=== PATIENT | female | born 1995 | race American Indian/Alaskan Native ===

== ENCOUNTER 2019-10-26 09:07 | Emergency (ER) | payer SELFPAY ==
[2019-10-26 09:22] VITALS: BP 125/77
--- NOTE | 2019-10-26 11:17 | Emergency Department Report ---
Chief Complaint: Urogenital-Female Stated Complaint: GROIN PAIN Time Seen by Provider: 10/26/19 11:07 - HPI History of Present Illness: 24-year-old -[place] female presents to the emergency room stating she is having some vaginal irritation for the last 2 days after using a scented panty liner product. Patient also reports that she may have have STD exposure. Patient denies any abdominal pain dysuria fever chills nausea vomiting. - Exam Vital Signs: Vital Signs 10/26/19 09:20 Temperature 98.3 F Pulse Rate 82 Respiratory 16 Rate Blood Pressure 125/77 O2 Sat by Pulse 99 Oximetry Physical Exam: Alert and oriented x3 no acute distress nontoxic in appearance External vaginal shows nonerythematous no lesions there is some mild creamy vaginal discharge with no odor. Patient is ambulatory without difficulties MSE screening note: Focused history and physical exam performed. Due to findings the following was ordered: 24-year-old -[place] female presents to the emergency room stating she is having some vaginal irritation for the last 2 days after using a scented panty liner product. Patient also reports that she may have have STD exposure. Patient denies any abdominal pain dysuria fever chills nausea vomiting. Discussed with patient she can follow-up with an [facility], [facility] or Dr. Opal Chavez. ED Disposition for MSE Disposition: MED SCREENING EXAM-LEFT Is pt being admited?: No Does the pt Need Aspirin: No Condition: Stable Instructions: Vaginitis (ED) Additional Instructions: Please discontinue using panty liners. Follow-up with a [facility] for vaginal discharge. Or you can follow-up at the health [facility] for STD evaluation and treatment. Referrals: PRIMARY CARE, [Primary Care Provider] - 3-5 Days LEILA CRISTOBAL MD [Staff Physician] - 3-5 Days [facility] [Provider Group] - 3-5 Days [facility] [Provider Group] - 3-5 Days [facility] [Outside] - 3-5 Days
== END 2019-10-26 11:35 | disposition left against medical advice (07) ==
LOC: ED 09:07
DX: R10.9 Unspecified abdominal pain (principal); Z53.21 Procedure and treatment not carried out due to patient leaving prior to being seen by health care provider

== ENCOUNTER 2020-10-17 08:53 | Emergency (ER) | payer SELFPAY ==
[2020-10-17 10:09] VITALS: BP 136/64
== END 2020-10-17 10:29 ==
LOC: ED 08:53
DX: R51.9 Headache, unspecified (principal); J02.9 Acute pharyngitis, unspecified; Z53.21 Procedure and treatment not carried out due to patient leaving prior to being seen by health care provider

== ENCOUNTER 2020-10-27 10:18 | Emergency (ER) | payer MEDICAID ==
[2020-10-27 10:26] VITALS: BP 100/62
--- NOTE | 2020-10-27 11:48 | Emergency Department Report ---
ED Extremity Problem HPI - General Chief complaint: Extremity Injury, Lower Stated complaint: BOTH LEG WEAKNESS/(R)LEG SWELLING Time Seen by Provider: 10/27/20 11:39 Source: patient Mode of arrival: Ambulatory Limitations: No Limitations - History of Present Illness Initial comments: Patient is a 25-year-old female presents emergency room complaints of right calf pain which she reports exacerbated yesterday. Patient reports that she had some swelling in her right leg yesterday but she elevated the leg and it resolved. Patient states that since she recovered from COVID-19 approximately 3 weeks ago she has had some intermittent discomfort. No numbness or weakness. Patient is ambulatory without difficulty. No other past medical history. No allergies to medications. - Related Data Allergies Allergy/AdvReac Type Severity Reaction Status Date / Time No Known Allergies Allergy Unverified 10/26/19 09:18 ED Review of Systems ROS: Stated complaint: BOTH LEG WEAKNESS/(R)LEG SWELLING Other details as noted in HPI Comment: All other systems reviewed and negative ED Past Medical Hx - Past Medical History Previous Medical History?: No - Surgical History Past Surgical History?: No - Social History Smoking Status: Never Smoker Substance Use Type: None ED Physical Exam - General Limitations: No Limitations General appearance: alert, in no apparent distress - Head Head exam: Present: atraumatic, normocephalic - Eye Eye exam: Present: normal appearance - ENT ENT exam: Present: mucous membranes moist - Respiratory Respiratory exam: Absent: respiratory distress, accessory muscle use - Extremities Exam Extremities exam: Present: other (mild right calf ttp, no leg edema, no skin changes, FROM of the RLE, no bony ttp, neurovascularly intact) - Neurological Exam Neurological exam: Present: alert, oriented X3 - Psychiatric Psychiatric exam: Present: normal affect, normal mood - Skin Skin exam: Present: warm, dry, intact ED Course Vital Signs 10/27/20 10:25 Temperature 98.7 F Pulse Rate 98 H Respiratory 16 Rate Blood Pressure 100/62 O2 Sat by Pulse 99 Oximetry ED Medical Decision Making - Medical Decision Making Patient is a 25-year-old female presents emergency room complaints of right calf pain which she reports exacerbated yesterday. Patient reports that she had some swelling in her right leg yesterday but she elevated the leg and it resolved. Patient states that since she recovered from COVID-19 approximately 3 weeks ago she has had some intermittent discomfort. No numbness or weakness. Patient is ambulatory without difficulty. No other past medical history. No allergies to medications. Vitals are normal. On exam:mild right calf ttp, no leg edema, no skin changes, FROM of the RLE, no bony ttp, neurovascularly intact. I see no obvious clinical signs of DVT, patient is concerned for a blood clot in the leg, advised patient that we would order a Doppler ultrasound and if negative she would be able to be discharged home. ultrasound has been calling patient to do her Doppler ultrasound and are unable to find patient, I called number listed on patient's chart and patient answered and I advised patient that ultrasound was looking for her to do her ultrasound to rule out any DVT, patient states that she went to get something to eat and she has decided not to be seen, patient has eloped prior to full medical examination and is aware of the risks associated with doing so. Critical care attestation.: If time is entered above; I have spent that time in minutes in the direct care of this critically ill patient, excluding procedure time. ED Disposition Clinical Impression: Right leg pain Disposition: 07 LEFT AWOL/ELOPED Is pt being admited?: No Does the pt Need Aspirin: No Condition: Undetermined Referrals: PRIMARY CARE, [Primary Care Provider] - 3-5 Days
== END 2020-10-27 14:17 | disposition left against medical advice (07) ==
LOC: ED 10:18
DX: M79.604 Pain in right leg (principal)
CPT/HCPCS: 99281